=== PATIENT | male | born 1945 | race Caucasian/White ===

== ENCOUNTER → 2016-06-15 | Outpatient (REF) | payer MEDICARE, BC ==
[~2016-06-15] MED LIST: /CELE20CA OR; /TAMS4CA OR; ASTELIN NASAL SPRAY; AVELIDE PO; BACT800T OR; CIPR500T19 OR; CLAR5CHW OR; FLAG500T OR; LEVAQUIN PO; LOPR50TA OR; NASAL SPRAY; PHEN 25 PO; PHEN100T2 OR; PRIL40CA OR; TOPROL XL PO; ULTRTA PO; VICO5TAB OR; WELCHOL PO; [UNRECOGNIZED DRUG - OTHER] PO
[2016-06-15 11:58] LABS: ALBUMIN 3.7 GM/DL (3.2-5.2); ALBUMIN/GLOBULIN RATIO 1.37 (1.00-1.93); BILIRUBIN,TOTAL 1.3 MG/DL (0.2-1.0); CALCIUM LEVEL 8.4 MG/DL (8.8-10.2); CREATININE FOR GFR 1.36 MG/DL (0.70-1.30); GLOMERULAR FILTRATION RATE 54.7 (>42); POTASSIUM SERUM 3.6 MEQ/L (3.5-5.1); TOTAL PROTEIN 6.4 GM/DL (6.4-8.2)
== END ==
LOC: M SFHCLERA 07:44
PROVIDERS: ATTEND Physician Assistant
DX: I10 Essential (primary) hypertension (principal); E78.2 Mixed hyperlipidemia

== ENCOUNTER → 2016-06-28 | Outpatient (CLI) | payer MEDICARE, BC | LOC: M WUC 15:38 | PROVIDERS: ATTEND Urology | DX: C61 Malignant neoplasm of prostate (principal) ==

== ENCOUNTER → 2016-10-29 | Outpatient (CLI) | payer MEDICARE, BC | LOC: M WUC 16:02 | PROVIDERS: ATTEND Urology | DX: C61 Malignant neoplasm of prostate (principal); R97.20 Elevated prostate specific antigen [PSA] ==

== ENCOUNTER → 2017-01-04 | Outpatient (REF) | payer MEDICARE, BC ==
[2017-01-04 11:31] LABS: MEAN CORPUSCULAR HEMOGLOBIN 32.8 pg (27.0-33.0); MEAN CORPUSCULAR HGB CONC 35.3 g/dl (32.0-36.5); MEAN CORPUSCULAR VOLUME 92.9 fl (80.0-96.0); PLATELET COUNT, AUTOMATED 168 10^3/uL (150-450); RED CELL DISTRIBUTION WIDTH 13.2 % (11.5-14.5)
== END ==
LOC: M SFHCLERA 08:27
PROVIDERS: ATTEND Physician Assistant
DX: I10 Essential (primary) hypertension (principal); E78.2 Mixed hyperlipidemia; Z23 Encounter for immunization
CPT/HCPCS: 80061; 85027; 90662; G0008; G0463

== ENCOUNTER → 2017-03-08 | Outpatient (CLI) | payer MEDICARE, BC ==
[2017-03-08 19:46] LABS: PROSTATIC SPECIFIC AG MONITOR 5.24 NG/ML (< 4.0)
== END ==
LOC: M WUC 14:43
DX: R97.21 Rising PSA following treatment for malignant neoplasm of prostate (principal)
CPT/HCPCS: 84153

== ENCOUNTER → 2017-07-05 | Outpatient (REF) | payer MEDICARE, BC ==
[2017-07-05 11:24] LABS: HEMOGLOBIN 15.8 g/dl (13.5-17.5); MEAN CORPUSCULAR HEMOGLOBIN 32.2 pg (27.0-33.0); MEAN CORPUSCULAR HGB CONC 35.1 g/dl (32.0-36.5); MEAN CORPUSCULAR VOLUME 91.8 fl (80.0-96.0); PLATELET COUNT, AUTOMATED 156 10^3/uL (150-450); WHITE BLOOD COUNT 4.9 10^3/uL (4.0-10.0)
[2017-07-05 11:37] LABS: ALBUMIN/GLOBULIN RATIO 1.38 (1.00-1.93); ALKALINE PHOSPHATASE 87 U/L (45-117); ALT/SGPT 49 U/L (12-78); ANION GAP 6 MEQ/L (8-16); AST/SGOT 40 U/L (7-37); BILIRUBIN,TOTAL 1.4 MG/DL (0.2-1.0); BLOOD UREA NITROGEN 21 MG/DL (7-18); CALCIUM LEVEL 8.4 MG/DL (8.8-10.2); CARBON DIOXIDE LEVEL 28 MEQ/L (21-32); CHLORIDE LEVEL 110 MEQ/L (98-107); CHOLESTEROL LEVEL 151 MG/DL (<200); CHOLESTEROL RISK RATIO 5.206 (<5); CREATININE FOR GFR 1.59 MG/DL (0.70-1.30); GLOMERULAR FILTRATION RATE 45.5 (>42); GLUCOSE, FASTING 92 MG/DL (70-100); HDL CHOLESTEROL 29 MG/DL (>40); NON-HDL-C 122 MG/DL; POTASSIUM SERUM 4.1 MEQ/L (3.5-5.1); SODIUM LEVEL 144 MEQ/L (136-145); TOTAL PROTEIN 6.9 GM/DL (6.4-8.2); TRIGLYCERIDES LEVEL 240 MG/DL (<150)
== END ==
LOC: M SFHCLERA 08:19
DX: I10 Essential (primary) hypertension (principal); E78.2 Mixed hyperlipidemia
CPT/HCPCS: 80053

== ENCOUNTER → 2017-08-11 | Outpatient (CLI) | payer MEDICARE, BC ==
[2017-08-11 13:26] LABS: PROSTATIC SPECIFIC AG MONITOR 4.37 NG/ML (< 4.0)
== END ==
LOC: M WUC 09:39
DX: C61 Malignant neoplasm of prostate (principal)
CPT/HCPCS: 84153

== ENCOUNTER → 2017-10-18 | Outpatient (CLI) | payer MEDICARE, BC ==
[2017-10-18 14:05] LABS: BASO % 0.6 % (0.0-1.0); EOS # 0.1 10^3/uL (0.0-0.50); EOS % 2.1 % (0.0-3.0); HEMATOCRIT 45.6 % (42.0-52.0); HEMOGLOBIN 15.9 g/dl (13.5-17.5); IMMATURE GRANULOCYTE % 0.4 % (0-3.0); LYMPH # 1.8 10^3/uL (1.5-4.5); LYMPH % 34.7 % (24.0-44.0); MEAN CORPUSCULAR HEMOGLOBIN 32.7 pg (27.0-33.0); MEAN CORPUSCULAR HGB CONC 34.9 g/dl (32.0-36.5); MEAN CORPUSCULAR VOLUME 93.8 fl (80.0-96.0); MONO # 0.4 10^3/uL (0.0-0.8); MONO % 7.9 % (0.0-5.0); NEUTROPHILS # 2.8 10^3/uL (1.8-7.7); NEUTROPHILS % 54.3 % (36.0-66.0); PLATELET COUNT, AUTOMATED 161 10^3/uL (150-450); RED BLOOD COUNT 4.86 10^6/uL (4.30-6.10); RED CELL DISTRIBUTION WIDTH 12.9 % (11.5-14.5); WHITE BLOOD COUNT 5.2 10^3/uL (4.0-10.0)
[2017-10-18 14:21] LABS: APPEARANCE, URINE CLEAR (CLEAR); BACTERIA, URINE AUTO NEGATIVE (NEGATIVE); BILIRUBIN, URINE AUTO NEGATIVE (NEGATIVE); BLOOD, URINE BLOOD NEGATIVE (NEGATIVE); COLOR, URINE YELLOW (YELLOW); GLUCOSE, URINE (UA) AUTO NEGATIVE (NEGATIVE); KETONE, URINE AUTO NEGATIVE (NEGATIVE); LEUKOCYTE ESTERASE, URINE AUTO NEGATIVE (NEGATIVE); MUCUS, URINE SMALL (NEGATIVE); NITRITE, URINE AUTO NEGATIVE (NEGATIVE); PROTEIN, URINE AUTO NEGATIVE (NEGATIVE); RBC, URINE AUTO 0 /HPF (0-3); SPECIFIC GRAVITY URINE AUTO 1.017 (1.002-1.035); SQUAMOUS EPITHELIAL CELL UR AU 0 /HPF (0-6); UROBILINOGEN, URINE AUTO 0.2 mg/dL (0.0-2.0); WBC, URINE AUTO 0 /HPF (0-3)
[2017-10-18 14:22] LABS: ALBUMIN 4.2 GM/DL (3.2-5.2); ALKALINE PHOSPHATASE 87 U/L (45-117); ALT/SGPT 52 U/L (12-78); ANION GAP 6 MEQ/L (8-16); AST/SGOT 42 U/L (7-37); BILIRUBIN,TOTAL 1.6 MG/DL (0.2-1.0); BLOOD UREA NITROGEN 24 MG/DL (7-18); CALCIUM LEVEL 9.1 MG/DL (8.8-10.2); CARBON DIOXIDE LEVEL 29 MEQ/L (21-32); CHLORIDE LEVEL 108 MEQ/L (98-107); CHOLESTEROL LEVEL 173 MG/DL (<200); CHOLESTEROL RISK RATIO 5.088 (<5); CREATININE FOR GFR 1.55 MG/DL (0.70-1.30); GLOMERULAR FILTRATION RATE 46.9 (>42); GLUCOSE, FASTING 103 MG/DL (70-100); HDL CHOLESTEROL 34 MG/DL (>40); LDL CHOLESTEROL 93 MG/DL (<100); MAGNESIUM LEVEL 2.4 MG/DL (1.8-2.4); NON-HDL-C 139 MG/DL; POTASSIUM SERUM 4.2 MEQ/L (3.5-5.1); SODIUM LEVEL 143 MEQ/L (136-145); TOTAL PROTEIN 7.2 GM/DL (6.4-8.2); TRIGLYCERIDES LEVEL 230 MG/DL (<150)
[2017-10-18 14:25] LABS: ESTIMATED AVERAGE GLUCOSE 91 MG/DL (60-110); HEMOGLOBIN A1c 4.8 %
== END ==
LOC: M SMT 10:02
DX: N18.3 Chronic kidney disease, stage 3 (moderate) (principal); I12.9 Hypertensive chronic kidney disease with stage 1 through stage 4 chronic kidney disease, or unspecified chronic kidney disease; E78.5 Hyperlipidemia, unspecified; C61 Malignant neoplasm of prostate; M54.5 Low back pain; M25.552 Pain in left hip; Z79.899 Other long term (current) drug therapy
CPT/HCPCS: 83735

== ENCOUNTER → 2017-11-21 | Outpatient (CLI) | payer MEDICARE, BC | LOC: M RAD 16:11 | DX: M47.816 Spondylosis without myelopathy or radiculopathy, lumbar region (principal) | CPT/HCPCS: 72148 ==

== ENCOUNTER → 2018-02-13 | Outpatient (CLI) | payer MEDICARE, BC | LOC: M WUC 08:49 | PROVIDERS: ATTEND Urology | DX: C61 Malignant neoplasm of prostate (principal); R97.20 Elevated prostate specific antigen [PSA] ==

== ENCOUNTER → 2018-03-04 | Outpatient (CLI) | payer MEDICARE, BC ==
[2018-03-04 17:12] LABS: BASO % 0.5 % (0.0-1.0); EOS # 0.2 10^3/uL (0.0-0.50); EOS % 2.7 % (0.0-3.0); HEMATOCRIT 42.6 % (42.0-52.0); HEMOGLOBIN 14.8 g/dl (13.5-17.5); LYMPH # 1.7 10^3/uL (1.5-4.5); LYMPH % 31.4 % (24.0-44.0); MEAN CORPUSCULAR HEMOGLOBIN 32.2 pg (27.0-33.0); MEAN CORPUSCULAR HGB CONC 34.7 g/dl (32.0-36.5); MEAN CORPUSCULAR VOLUME 92.6 fl (80.0-96.0); MONO # 0.5 10^3/uL (0.0-0.8); MONO % 9.4 % (0.0-5.0); NEUTROPHILS # 3.1 10^3/uL (1.8-7.7); NEUTROPHILS % 55.8 % (36.0-66.0); PLATELET COUNT, AUTOMATED 174 10^3/uL (150-450); WHITE BLOOD COUNT 5.6 10^3/uL (4.0-10.0)
[2018-03-04 17:17] LABS: ALBUMIN 3.9 GM/DL (3.2-5.2); CALCIUM LEVEL 8.3 MG/DL (8.8-10.2); CHOLESTEROL RISK RATIO 4.242 (<5); CREATININE FOR GFR 1.72 MG/DL (0.70-1.30); GLOMERULAR FILTRATION RATE 41.5 (>42); MAGNESIUM LEVEL 2.2 MG/DL (1.8-2.4); MB/CK RELATIVE INDEX 1.47 (< OR =4); POTASSIUM SERUM 4.2 MEQ/L (3.5-5.1); TOTAL PROTEIN 6.4 GM/DL (6.4-8.2)
[2018-03-04 17:43] LABS: MALB URINE SIEMENS 15.7 MG/L
[2018-03-06 09:36] LABS: PTH INTACT 108.2 PG/ML (18.5-88.0); TOTAL 25(OH) VITAMIN D 53.1 NG/ML (30.0-100.0)
== END ==
LOC: M WUC 14:26
PROVIDERS: ATTEND Nurse Practitioner Family
DX: I12.9 Hypertensive chronic kidney disease with stage 1 through stage 4 chronic kidney disease, or unspecified chronic kidney disease (principal); E78.5 Hyperlipidemia, unspecified; E55.9 Vitamin D deficiency, unspecified; N18.3 Chronic kidney disease, stage 3 (moderate)

== ENCOUNTER → 2018-05-17 | Outpatient (REF) | payer MEDICARE, BC ==
[~2018-05-17] MED LIST changes: -/CELE20CA OR; -/TAMS4CA OR; +CELE1CAP4 OR; +FLOM0.4C39 OR
[2018-05-17 16:24] LABS: ALBUMIN 4.1 GM/DL (3.2-5.2); CALCIUM LEVEL 8.8 MG/DL (8.8-10.2); CREATININE FOR GFR 1.75 MG/DL (0.70-1.30); GLOMERULAR FILTRATION RATE 40.7 (>42); PHOSPHORUS LEVEL 3.1 MG/DL (2.5-4.9); POTASSIUM SERUM 3.5 MEQ/L (3.5-5.1)
== END ==
LOC: M SFHCPLAZ 14:04
PROVIDERS: ATTEND Nurse Practitioner Family
DX: I10 Essential (primary) hypertension (principal)
CPT/HCPCS: 36415; 80069; G0463

== ENCOUNTER → 2018-08-14 | Outpatient (CLI) | payer MEDICARE, BC ==
[2018-08-14 13:07] LABS: BASO % 0.4 % (0.0-1.0); EOS # 0.1 10^3/uL (0.0-0.50); EOS % 1.9 % (0.0-3.0); HEMATOCRIT 45.1 % (42.0-52.0); HEMOGLOBIN 15.6 g/dl (13.5-17.5); LYMPH # 1.6 10^3/uL (1.5-4.5); LYMPH % 33.3 % (24.0-44.0); MEAN CORPUSCULAR HEMOGLOBIN 31.5 pg (27.0-33.0); MEAN CORPUSCULAR HGB CONC 34.6 g/dl (32.0-36.5); MEAN CORPUSCULAR VOLUME 90.9 fl (80.0-96.0); MONO # 0.4 10^3/uL (0.0-0.8); MONO % 9.1 % (0.0-5.0); NEUTROPHILS # 2.7 10^3/uL (1.8-7.7); NEUTROPHILS % 55.1 % (36.0-66.0); PLATELET COUNT, AUTOMATED 145 10^3/uL (150-450); RED BLOOD COUNT 4.96 10^6/uL (4.30-6.10); WHITE BLOOD COUNT 4.8 10^3/uL (4.0-10.0)
[2018-08-14 13:35] LABS: ALBUMIN 3.6 GM/DL (3.2-5.2); BILIRUBIN,TOTAL 0.9 MG/DL (0.2-1.0); CALCIUM LEVEL 8.2 MG/DL (8.8-10.2); CHOLESTEROL RISK RATIO 4.081 (<5); CREATININE FOR GFR 1.37 MG/DL (0.70-1.30); GLOMERULAR FILTRATION RATE 53.9 (>42); MAGNESIUM LEVEL 2.1 MG/DL (1.8-2.4); PTH INTACT 64.2 PG/ML (18.5-88.0); THYROID STIMULATING HORMONE 3.44 uIU/ML (0.358-3.740); TOTAL 25(OH) VITAMIN D 49.4 NG/ML (30.0-100.0); TOTAL PROTEIN 6.3 GM/DL (6.4-8.2)
[2018-08-14 14:20] LABS: HEMOGLOBIN A1c 5.6 %
== END ==
LOC: M WUC 08:31
PROVIDERS: ATTEND Nurse Practitioner Family
DX: I10 Essential (primary) hypertension (principal); E78.5 Hyperlipidemia, unspecified; E55.9 Vitamin D deficiency, unspecified; Z79.899 Other long term (current) drug therapy

== ENCOUNTER → 2018-08-16 | Outpatient (REF) | payer MEDICARE, BC | LOC: M SFHCPLAZ 15:50 | PROVIDERS: ATTEND Nurse Practitioner Family | DX: M47.816 Spondylosis without myelopathy or radiculopathy, lumbar region (principal) ==

== ENCOUNTER → 2018-09-28 | Outpatient (CLI) | payer MEDICARE, BC | LOC: M WUC 14:15 | PROVIDERS: ATTEND Urology | DX: C61 Malignant neoplasm of prostate (principal) ==

== ENCOUNTER → 2018-12-19 | Outpatient (CLI) | payer MEDICARE, BC ==
[2018-12-19 14:14] LABS: BASO % 0.6 % (0.0-1.0); EOS # 0.1 10^3/uL (0.0-0.5); EOS % 2.9 % (0.0-3.0); HEMATOCRIT 45.9 % (42.0-52.0); HEMOGLOBIN 15.4 g/dl (13.5-17.5); LYMPH # 1.4 10^3/uL (1.5-5.0); LYMPH % 29.9 % (24.0-44.0); MEAN CORPUSCULAR HEMOGLOBIN 31.1 pg (27.0-33.0); MEAN CORPUSCULAR HGB CONC 33.6 g/dl (32.0-36.5); MEAN CORPUSCULAR VOLUME 92.7 fl (80.0-96.0); MONO # 0.4 10^3/uL (0.0-0.8); MONO % 8.6 % (0.0-5.0); NEUTROPHILS # 2.7 10^3/uL (1.5-8.5); NEUTROPHILS % 57.8 % (36.0-66.0); PLATELET COUNT, AUTOMATED 153 10^3/uL (150-450); RED BLOOD COUNT 4.95 10^6/uL (4.30-6.10); WHITE BLOOD COUNT 4.8 10^3/uL (4.0-10.0)
[2018-12-19 14:24] LABS: ALBUMIN 3.7 GM/DL (3.2-5.2); BILIRUBIN,TOTAL 1.5 MG/DL (0.2-1.0); CALCIUM LEVEL 8.7 MG/DL (8.8-10.2); CHOLESTEROL RISK RATIO 4.242 (<5); CREATININE FOR GFR 1.32 MG/DL (0.70-1.30); FREE T4 0.86 NG/DL (0.76-1.46); GLOMERULAR FILTRATION RATE 56.3 (>42); MAGNESIUM LEVEL 1.8 MG/DL (1.8-2.4); POTASSIUM SERUM 3.9 MEQ/L (3.5-5.1); THYROID STIMULATING HORMONE 2.41 uIU/ML (0.358-3.740); TOTAL PROTEIN 6.3 GM/DL (6.4-8.2)
[2018-12-19 14:27] LABS: PTH INTACT 63.4 PG/ML (18.5-88.0); TOTAL 25(OH) VITAMIN D 51.6 NG/ML (30.0-100.0)
[2018-12-19 14:36] LABS: HEMOGLOBIN A1c 5.4 %
== END ==
LOC: M WUC 12:03
PROVIDERS: ATTEND Nurse Practitioner Family
DX: M47.816 Spondylosis without myelopathy or radiculopathy, lumbar region (principal); I10 Essential (primary) hypertension; E55.9 Vitamin D deficiency, unspecified; E78.5 Hyperlipidemia, unspecified; Z79.899 Other long term (current) drug therapy

== ENCOUNTER → 2018-12-29 | Outpatient (CLI) | payer MEDICARE, BC ==
--- NOTE | 2018-12-29 15:45 | REP ---
RIGHT SHOULDER, THREE VIEWS: There is no evidence of an acute fracture, dislocation or intrinsic bone disease. IMPRESSION: No fracture or dislocation. Electronically Signed by Chuy Blanco MD 01/01/2019 09:36 A
== END ==
LOC: M WUC 15:14
PROVIDERS: ATTEND Nurse Practitioner Family
DX: M25.511 Pain in right shoulder (principal)

== ENCOUNTER → 2019-03-22 | Outpatient (CLI) | payer MEDICARE, BC | LOC: M PLALAB 13:46 | PROVIDERS: ATTEND Urology | DX: C61 Malignant neoplasm of prostate (principal); R97.21 Rising PSA following treatment for malignant neoplasm of prostate ==

== ENCOUNTER → 2019-08-07 | Outpatient (CLI) | payer MEDICARE, BC ==
[~2019-08-07] MED LIST changes: +ALL10TAB29 PO; +AMLO5TAB6 PO; +ATOR1TAB19 PO; +AVOD0.5C PO; +CALC1CAP31 PO; +CENT1TAB2 PO; +EQ A OU; +GABA-843 PO; +METO1TAB7 PO; +TELM1TAB33 PO
--- NOTE | 2019-08-07 15:01 | CR ---
DATE OF CONSULTATION: 08/07/2019 CHIEF COMPLAINT: Prostate cancer. HISTORY OF PRESENT ILLNESS: Mr. Escamilla is a 74-year-old gentleman, who has had PSA test for the last 10 years. His PSA fluctuated from range of 5 to 8. He did not have any significant urological symptoms. His PSA on February 17, 2012 reported to be 9.38 and March 08, 2017 was 5.24. On August 11, 2017 was 4.37. February 13, 2018 was 5.34. On September 28, 2018 was 5.97 and on 03/22/2009 was 7.83. The patient stated that he had negative prostatic biopsies in 2009,and prostatic biopsy on April 28, 2012 showed Michael 6 in2 out of multiple cores. He has no significant urinary symptoms. Most recent biopsy on July 17, 2019 showed Michael 7(3+4) in one core and Michael 6(3+3 )in another core, total of 7 cores. PAST MEDICAL HISTORY SIGNIFICANT FOR: 1. Hypertension. 2. High cholesterol. SURGICAL HISTORY: Surgical repair of right ankle fracture and left leg fracture in 2004. Ankle fracture was 1978. CURRENT MEDICATIONS: Amlodipine besylate 5 mg every day, omeprazole 40 mg once a day, tamsulosin 0.4 mg twice a day, Avodart 0.5 mg every day, voltaren 1% applied to the left knee, metoprolol succinate 50 mg every day, atorvastatin calcium 10 mg daily, Restore Plus drops to each eye daily, telmisartan 20 mg every day, gabapentin 300 mg once a day and cetirizine HCl 10 mg every bedtime. ALLERGIES: He has no known drug allergies. FAMILY HISTORY: He said his father had prostate cancer diagnosed in the late 60s and he of some other cause. There is no other family history of cancer. SOCIAL HISTORY: He lives with , who has been 56 years and has three children. He is a nonsmoker. He denies any alcohol and drug abuse. He is self employed. 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 REVIEW OF SYSTEMS: GENERAL and CONSTITUTIONAL: He denies fever, headache, chills, weight loss. HEENT: Denies visual disturbance or hearing problems. RESPIRATORY PULMONARY: Denies cough, shortness of breath. CARDIOVASCULAR: Denies palpitations or chest pain. GASTROINTESTINAL: Denies nausea, vomiting, abdominal cramps. GENITOURINARY: He denies urinary frequency, incontinence, hematuria, dysuria. MUSCULOSKELETAL: Denies bone pain, joint swelling. SKIN: Denies rashes. NEUROLOGICAL: Denies headache, dizziness. PSYCHIATRIC and EMOTIONAL Denies depression or anxiety. ECOG performance status is 0. PHYSICAL EXAMINATION: GENERAL EXAMINATION: Revealed well-developed and nourished male and not in apparent distress. The patient was alert and oriented. VITAL SIGNS: Temperature 97.4, pulse 68, res1 16, blood pressure 139/82, oxygen saturation is 97. HEENT: Normocephalic, atraumatic. NECK: Supple. No cervical lymphadenopathy. CARDIOVASCULAR: Regular rhythm and rate. RESPIRATORY: Clear to auscultation. ABDOMEN: Soft, nontender, nondistended without any palpable mass or organomegaly. GENITOURINARY: Not examined. LYMPHATICS: No groin lymphadenopathy. SKIN: There are on skin lesions. EXTREMITIES: No swelling, cyanosis or clubbing. NEUROLOGICAL: Strength and sensation grossly normal. PSYCHIATRIC: Mood and affect appropriate. PATHOLOGICAL FINDINGS: Mentioned in the history of present illness. LABORATORY FINDINGS: Mentioned in history of present illness. ICD10 code C 61. Staging T1c, N0,M0.,Intermediate risk group ASSESSMENT AND RECOMMENDATIONS: Mr. Escamilla is a 75-year-old gentleman presented with rising PSA in the last 10 years. PSA on 2019 was 7.83. The patient had prostatic biopsy on July 16, 2009 and the pathology showed Michael score of 7 3+4 and 6 3+3. He has no urinary symptoms. RECOMMENDATION: The patient was accompanied by his and we have discussed the nature of the disease and all the treatment options. He is in intermediate risk group of prostate cancer. We reviewed NCCN guidlines and explained all the options, which include surgery, observations. They decided to have external radiation therapy. I discussed more details of radiation therapy and explained procedures and potential side effect of the radiation therapy. I am planning to deliver dose of 7900 cGy in 9 weeks. I have given them a chance to ask questions and concerns and they were answered to their satisfaction. Patient will have fiducial markers placed before planning CT MTDD
== END ==
LOC: M ONCR 09:52
PROVIDERS: ATTEND Radiology Radiation Oncology
DX: C61 Malignant neoplasm of prostate (principal); I10 Essential (primary) hypertension; E78.5 Hyperlipidemia, unspecified; Z80.42 Family history of malignant neoplasm of prostate

== ENCOUNTER → 2019-10-08 | Outpatient (RCR) | payer MEDICARE, BC ==
[~2019-10-08] MED LIST changes: -ALL10TAB29 PO; +AMLO1TAB24 PO; -AMLO5TAB6 PO; +CETI-24 PO
== END ==
LOC: M ONCR 09-26 09:10
PROVIDERS: ATTEND General Practice
DX: C61 Malignant neoplasm of prostate (principal)

== ENCOUNTER 2019-10-29 08:46 | Outpatient (RCR) | payer MEDICARE, BC | END 2019-11-07 | LOC: M ONCR 08:46 | PROVIDERS: ATTEND General Practice | DX: C61 Malignant neoplasm of prostate (principal) ==

== ENCOUNTER → 2020-01-29 | Outpatient (CLI) | payer MEDICARE, BC ==
[2020-01-29 12:39] LABS: PROSTATIC SPECIFIC AG MONITOR 1.02 NG/ML (< 4.00)
== END ==
LOC: M WUC 09:15
PROVIDERS: ATTEND Radiology Radiation Oncology
DX: C61 Malignant neoplasm of prostate (principal)

== ENCOUNTER → 2020-02-05 | Outpatient (CLI) | payer MEDICARE, BC ==
--- NOTE | 2020-02-05 10:26 | RADONC ---
Radiation Oncology Hx/FUP Radiation Oncology Hx/FUP Date of Service: Feb 05, 2020 Pt Identifier Kane Escamilla is a 74 year old male seen for a followup visit today at the department of radiation oncology for a history of favorable intermediate risk prostate cancer T1c Michael 3+4=7 PSA 7.83. He completed EBRT 70 Gy in 28 fractions on 10/29/19. Diagnosis/Treatment History Oncologic History As above Pathology 07/17/19 TURS biopsy Left apex Michael 3+4=7 in 1 core Right apex [place] 3+3=6 in 1 core PSA (on Avodart long standing) 01/29/20 1.02 (1st post-tx) 03/22/19 7.83 (immediate pre-tx) Testosterone 01/29/20 418 Interval History Kane feels well stable 2x nocturia. Remains on flomax 0.8 mg QHS. Only urinary bother which is new since RT is intermittent end of stream dysuria, which is mild and not overly painful. He takes azo tabs PRN for this. No problems with bowel movements. Has longstanding ED, unchanged. Appetite and energy good, weight stable. Current Therapy Surveillance Stage Favorable intermediate risk prostate cancer T1c Michael 3+4=7 (single core) PSA 7.83 Social History: Non-smoker Non-drinker Allergies / Meds Allergies: Coded Allergies: MS - Propoxyphene (Unverified Adverse Reaction, Unknown, WEIRD DREAMS, 05/10/12) No Known Allergies (Verified , 06/01/04) Home Meds Reported Medications Cetirizine HCl (Cetirizine HCl) 10 Mg Tablet, 10 MG PO QHS, TAB 08/07/19 Gabapentin (Gabapentin) 300 Mg Capsule, 300 MG PO DAILY for 30 Days, #30 CAP 08/07/19 Telmisartan (Telmisartan) 20 Mg Tablet, 20 MG PO DAILY for 30 Days, #30 TAB 08/07/19 Glycerin/Propylene Glycol (Eq Artificial Tears Drops) 15 Ml Drops, 1 JOSE OU DAILY, CONTAINER 08/07/19 Atorvastatin Calcium (Atorvastatin Calcium) 10 Mg Tablet, 10 MG PO DAILY, TAB 08/07/19 Calcitriol (Calcitriol) 0.25 Mcg Capsule, 0.25 MCG PO 3XW for 30 Days, CAP 08/07/19 Metoprolol Succinate (Metoprolol Succinate) 50 Mg Tab.er.24h, 50 MG PO DAILY, TAB 08/07/19 Dutasteride (Avodart) 0.5 Mg Capsule, 1 CAP PO DAILY for 30 Days, #30 CAP 08/07/19 Multivit-Mins/Iron/Folic/Lycop (Centrum Men's Tablet) 1 Each Tablet, 1 TAB PO DAILY for 30 Days, #30 TAB 08/07/19 Amlodipine Besylate (Amlodipine Besylate) 5 Mg Tablet, 5 MG PO DAILY, TAB 08/07/19 Loratadine (Children's Claritin) 5 Mg Chw, 10 MG OR DAILY 10/03/11 Ciprofloxacin/Ciprofloxa HCl (Ciprofloxacin ER 500 mg Tablet) 500 Mg Tab, 500 MG OR BID 10/03/11 Metronidazole (Flagyl) 500 Mg Tab, 500 MG OR TID 10/03/11 Metoprolol Tartrate (Lopressor) 50 Mg Tab, 50 MG OR Q8H 10/03/11 Colesevelam Hydrochloride (Welchol) Tab, 625 MG PO DAILY 10/01/11 Promethazine Hcl (Phenergan) 25 Mg Tab, 25 MG PO TIDP 10/01/11 Omeprazole (Prilosec) 40 Mg Cap, 40 MG OR BID 10/01/11 [Astelin Nasal [place]] No Conflict Check, 2 SPRAYS NA 10/01/11 Tramadol/Apap (Ultracet) 1 Tab Tab, 1 TAB PO BID 10/01/11 Celecoxib (Celebrex) 200 Mg Cap, 200 MG OR DAILY 10/01/11 [Hyoscamine] No Conflict Check, 1 TAB PO PRN 10/01/11 [Avelide] No Conflict Check, 1 TAB PO DAILY 10/01/11 Phenazopyridine Hcl (Pyridium) 100 Mg Tab, 100 MG OR PRN 10/01/11 Tamsulosin HCl (Flomax) 0.4 Mg Cap, 0.4 MG OR QHS 10/01/11 Acetaminophen/Hydrocodone (Vicodin) 1 Tab Tab, 2 TAB OR PRN 10/01/11 Review of Systems Review of Systems Constitutional: Denies: Fatigue, Weight Loss Eyes: Denies: Pain HEENT: Denies: Head Aches Skin: Denies: Rash Pulmonary: Denies: Dyspnea, Cough Cardiovascular: Denies: Chest Pain, Palpitations Gastrointestinal: Denies: Nausea, Vomiting, Abdominal Pain, Constipation Genitourinary: Reports: Dysuria; Denies: Frequency, Incontinence, Hematuria, Retention Hematologic: Denies: Bruising Musculoskeletal: Denies: Neck pain, Back pain Neurological: Denies: Weakness, Numbness Psych: Reports: Mood Normal Physical Examination Vital Signs Wt 195 lb T 97.4 P 69 RR 16 BP 173/76 O2 98% General Exam: Positive: Alert, Cooperative, No Acute Distress Eye Exam: Positive: PERRLA, EOMI ENT EXAM: Positive: Atraumatic Neck Exam: Positive: Supple Chest Exam: Positive: Clear to auscultation, Normal air movement Heart Exam: Positive: Rate Normal, Regular Rhythm Abdomen Exam: Positive: Soft; Negative: Tenderness Extremity Exam: Negative: Edema Skin Exam: Positive: Nl turgor and temperature Neuro Exam: Positive: Normal Gait, Normal Speech, Cranial Nerves 3-12 NL Psych Exam: Positive: Mental status NL Other Physical Findings deferred Diagnostic and Laboratory Diagnostic Review Radiologic images, relevant labs and pathology reports were personally reviewed and discussed with Mr. Escamilla. Assessment and Plan Impression Assessment Mr. Escamilla is a 74 year old male with a history of favorable intermediate risk prostate cancer T1c [place] 3+4=7 PSA 7.83. He completed EBRT 70 Gy in 28 f ractions on 10/29/19. He is doing well overall. PSA response is excellent. He continue on avodart (unclear if this is necessary at this time given his lack of LUTS), I asked him to take up this issue with urology who prescribes the med. He continues on alex max. With regard to his end of stream dysuria, this is common post-RT and can be persistent for many months. Azo is effective for this as needed and I asked him to try 100% cranberry juice BID. He knows can always call me if these things aren't effective. I will follow PSA, next in 6 months Performance Status ECOG 0 Plan 6 months with PSA Cranberry juice/azo for dysuria To speak with urologist about avodart utility in this setting Mr. Escamilla was encouraged to call with questions or concerns in the interim period. STEVO CHACON MD Feb 05, 2020 10:26
== END ==
LOC: M ONCR 09:46
PROVIDERS: ATTEND General Practice
DX: C61 Malignant neoplasm of prostate (principal)

== ENCOUNTER → 2020-05-21 | Outpatient (CLI) | payer MEDICARE, BC ==
[~2020-05-21] MED LIST changes: +GABA-282 PO; -GABA-843 PO
[2020-05-21 10:11] LABS: BASO % 0.5 % (0.0-1.0); EOS # 0.1 10^3/uL (0.0-0.5); EOS % 2.6 % (0.0-3.0); HEMATOCRIT 45.1 % (42.0-52.0); HEMOGLOBIN 15.3 g/dl (13.5-17.5); LYMPH # 1.1 10^3/uL (1.5-5.0); LYMPH % 28.1 % (24.0-44.0); MEAN CORPUSCULAR HEMOGLOBIN 31.7 pg (27.0-33.0); MEAN CORPUSCULAR HGB CONC 33.9 g/dl (32.0-36.5); MEAN CORPUSCULAR VOLUME 93.6 fl (80.0-96.0); MONO # 0.4 10^3/uL (0.0-0.8); NEUTROPHILS # 2.3 10^3/uL (1.5-8.5); NEUTROPHILS % 57.5 % (36.0-66.0); PLATELET COUNT, AUTOMATED 132 10^3/uL (150-450); RED BLOOD COUNT 4.82 10^6/uL (4.30-6.10); WHITE BLOOD COUNT 3.9 10^3/uL (4.0-10.0)
[2020-05-21 10:35] LABS: ALBUMIN 3.8 GM/DL (3.2-5.2); BILIRUBIN,TOTAL 1.3 MG/DL (0.2-1.0); CALCIUM LEVEL 9.2 MG/DL (8.8-10.2); CHOLESTEROL RISK RATIO 4.162 (<5); CREATININE FOR GFR 1.35 MG/DL (0.70-1.30); GLOMERULAR FILTRATION RATE 54.6 (>42); POTASSIUM SERUM 4.3 MEQ/L (3.5-5.1); TOTAL PROTEIN 6.5 GM/DL (6.4-8.2)
[2020-05-21 10:42] LABS: PTH INTACT 63.6 PG/ML (18.5-88.0); TOTAL 25(OH) VITAMIN D 39.5 NG/ML (30.0-100.0)
== END ==
LOC: M WUC 08:15
PROVIDERS: ATTEND Nurse Practitioner Family
DX: E78.5 Hyperlipidemia, unspecified (principal); M15.9 Polyosteoarthritis, unspecified; I10 Essential (primary) hypertension; E55.9 Vitamin D deficiency, unspecified; Z79.899 Other long term (current) drug therapy

== ENCOUNTER → 2020-05-23 | Outpatient (REF) | payer MEDICARE, BC ==
[2020-05-25 07:06] LABS: PSA TOTAL 0.5 ng/mL (0.0-4.0)
== END ==
LOC: M SFHCPLAZ 11:55
PROVIDERS: ATTEND Nurse Practitioner Family
DX: C61 Malignant neoplasm of prostate (principal)

== ENCOUNTER → 2020-07-26 | Outpatient (CLI) | payer MEDICARE, BC ==
[~2020-07-26] MED LIST changes: +OMEP-221; +TAMS1CAP17; +TRAM37.53
== END ==
LOC: M LABSMTC 08:41
PROVIDERS: ATTEND Anesthesiology
DX: Z01.812 Encounter for preprocedural laboratory examination (principal); Z20.822 Contact with and (suspected) exposure to COVID-19

== ENCOUNTER 2020-07-31 12:03 | Day surgery (SDC) | payer MEDICARE, BC ==
[~2020-07-31] VITALS: Ht 170.2 cm; Wt 82.6 kg
[~2020-07-31 12:03] MED LIST changes: +LIDOCAINE 2% 100MG/5ML SDV (FOR ANES.) As Ordered ONE; +NS 1,000 ML IV ONE; +propofoL 200 MG/20 ML VIAL As Ordered ONE
[2020-07-31 14:00] VITALS: BP 119/70
--- NOTE | 2020-07-31 14:06 | ROOR ---
Patient Name: Kane Escamilla Procedure Date: 07/31/2020 1:33 PM Date of : 1945 Age: 75 Room: [facility] Gender: Male Note Status: Finalized Procedure: Colonoscopy Indications: Rectal bleeding Providers: Servando Ceja Jr, MD Referring MD: Kelly Tuttle Requesting Provider: Medicines: Propofol per Anesthesia Complications: No immediate complications. Procedure: Pre-Anesthesia Assessment: - Prior to the procedure, a History and Physical was performed, and patient medications and allergies were reviewed. The patient is competent. The risks and benefits of the procedure and the sedation options and risks were discussed with the patient. All questions were answered and informed consent was obtained. Patient identification and proposed procedure were verified by the physician and the nurse in the pre-procedure area and in the procedure room. Mental Status Examination: alert and oriented. Airway Examination: normal oropharyngeal airway and neck mobility. Respiratory Examination: clear to auscultation. CV Examination: normal. ASA Grade Assessment: II - A patient with mild systemic disease. After reviewing the risks and benefits, the patient was deemed in satisfactory condition to undergo the procedure. The anesthesia plan was to use moderate sedation / analgesia (conscious sedation). Immediately prior to administration of medications, the patient was re-assessed for adequacy to receive sedatives. The heart rate, respiratory rate, oxygen saturations, blood pressure, adequacy of pulmonary ventilation, and response to care were monitored throughout the procedure. The physical status of the patient was re-assessed after the procedure. The Colonoscope was introduced through the anus and advanced to the cecum, identified by appendiceal orifice and ileocecal valve. The patient tolerated the procedure well. The quality of the bowel preparation was adequate. The colonoscopy was performed without difficulty. Findings: The appendiceal orifice and ileocecal valve appeared normal. Four polyps were found in the descending colon, ascending colon and cecum. The polyps were small in size. These polyps were removed with a hot snare. Resection and retrieval were complete. A medium polyp was found in the sigmoid colon. The polyp was pedunculated. The polyp was removed with a hot snare. Resection and retrieval were complete. The mucosa vascular pattern in the rectum was locally increased. Coagulation for hemostasis using hot biopsy forceps was successful. Impression: - The appendiceal orifice and ileocecal valve are normal. - Four small polyps in the descending colon, in the ascending colon and in the cecum, removed with a hot snare. Resected and retrieved. - One medium polyp in the sigmoid colon, removed with a hot snare. Resected and retrieved. - Increased mucosa vascular pattern in the rectum. SEVERE RADIATION PROCTITIS Treated with hot biopsy forceps. Recommendation: - Discharge patient to home (ambulatory). - Refer to a line haul driver at appointment to be scheduled. - Ablate with laser treatment(s) at appointment to be scheduled. Procedure Code(s): --- Professional --- 30721, 59, Colonoscopy, flexible; with control of bleeding, any method 73467, Colonoscopy, flexible; with removal of tumor(s), polyp(s), or other lesion(s) by snare technique Diagnosis Code(s): --- Professional --- K62.5, Hemorrhage of anus and rectum K63.5, Polyp of colon CPT copyright 2019 [employer]. All rights reserved. The codes documented in this report are preliminary and upon fitness specialist review may be revised to meet current compliance requirements. Servando Ceja MD Servando Ceja Jr, MD 07/31/2020 2:06:16 PM Electronically signed by Servando Ceja Jr, MD Number of Addenda: 0 Note Initiated On: 07/31/2020 1:33 PM Estimated Blood Loss: Estimated blood loss: none.
== END 2020-07-31 14:07 | disposition home or self-care (01) ==
LOC: M OPP 12:03
PROVIDERS: ATTEND Surgery
DX: K63.5 Polyp of colon (principal); K57.30 Diverticulosis of large intestine without perforation or abscess without bleeding; K62.7 Radiation proctitis; K62.5 Hemorrhage of anus and rectum; Z79.899 Other long term (current) drug therapy; Z88.5 Allergy status to narcotic agent; Z92.3 Personal history of irradiation

== ENCOUNTER → 2020-08-04 | Outpatient (CLI) | payer MEDICARE, BC ==
[~2020-08-04] MED LIST changes: -LIDOCAINE 2% 100MG/5ML SDV (FOR ANES.) As Ordered ONE; -NS 1,000 ML IV ONE; -propofoL 200 MG/20 ML VIAL As Ordered ONE
== END ==
LOC: M WUC 09:29
PROVIDERS: ATTEND General Practice
DX: C61 Malignant neoplasm of prostate (principal)

== ENCOUNTER → 2020-08-06 | Outpatient (CLI) | payer MEDICARE, BC ==
--- NOTE | 2020-08-06 11:52 | RADONC ---
Radiation Oncology Hx/FUP Radiation Oncology Hx/FUP Date of Service: Aug 06, 2020 Pt Identifier Kane Escamilla is a 75 year old male seen for a followup visit today at the department of radiation oncology for a history of favorable intermediate risk prostate cancer T1c Michael 3+4=7 PSA 7.83. He completed EBRT 70 Gy in 28 fractions on 10/29/19. Diagnosis/Treatment History Oncologic History As above Pathology 07/17/19 TURS biopsy Left apex Michael 3+4=7 in 1 core Right apex [place] 3+3=6 in 1 core PSA (on Avodart long standing) 08/04/20 0.64 01/29/20 1.02 (1st post-tx) 03/22/19 7.83 (immediate pre-tx) Testosterone 01/29/20 418 Recent data: 07/31/20 Colonoscopy with RT proctitis. TA and HPs snared Interval History Kane reports he is feeling well, however over the late Winter he began having some painless BRBPR, initially just on the paper when wiping, but steadily increasing over months to drops in the bowl. No diarrhea or increased bowel frequency with this. He was referred to Dr. Ceja who did a colonoscopy on 07/31/20 which showed RT proctitis. He is being referred for laser treatment. His urinary symptoms post-RT have abated and he states are better than before treatment, nocturia is down to 1x, no weak stream or incomplete emptying. The late stream dysuria he had at the last appointment has resolved completely. Appetite is good and energy levels stable. He established urologic care @ [facility], and is seeing a doctor there in 6 months. Current Therapy Surveillance Stage Favorable intermediate risk prostate cancer T1c [place] 3+4=7 (single core) PSA 7.83 Social History: Non-smoker Non-drinker Allergies / Meds Allergies: Coded Allergies: propoxyphene (Verified Adverse Reaction, Mild, weird dreams, 07/22/20) Home Meds Reported Medications Omeprazole (Omeprazole) 40 Mg Capsule. 07/22/20 Tamsulosin Hcl (Tamsulosin HCl) 0.4 Mg Capsule 07/22/20 Tramadol HCl/Acetaminophen (Tramadol-Acetaminophn 37.5-325) 1 Each Tablet 07/22/20 Cetirizine HCl (Cetirizine HCl) 10 Mg Tablet, 10 MG PO QHS, TAB 08/07/19 Gabapentin (Gabapentin) 300 Mg Capsule, 300 MG PO DAILY for 30 Days, #30 CAP 08/07/19 Telmisartan (Telmisartan) 20 Mg Tablet, 20 MG PO DAILY for 30 Days, #30 TAB 08/07/19 Glycerin/Propylene Glycol (Eq Artificial Tears Drops) 15 Ml Drops, 1 JOSE OU DAILY, CONTAINER 08/07/19 Atorvastatin Calcium (Atorvastatin Calcium) 10 Mg Tablet, 10 MG PO DAILY, TAB 08/07/19 Calcitriol (Calcitriol) 0.25 Mcg Capsule, 0.25 MCG PO 3XW for 30 Days, CAP 08/07/19 Metoprolol Succinate (Metoprolol Succinate) 50 Mg Tab.er.24h, 50 MG PO DAILY, TAB 08/07/19 Multivit-Mins/Iron/Folic/Lycop (Centrum Men's Tablet) 1 Each Tablet, 1 TAB PO DAILY for 30 Days, #30 TAB 08/07/19 Amlodipine Besylate (Amlodipine Besylate) 5 Mg Tablet, 5 MG PO DAILY, TAB 08/07/19 Review of Systems Review of Systems Constitutional: Denies: Chills, Fever, Fatigue, Weight Loss Eyes: Denies: Pain HEENT: Denies: Head Aches Skin: Denies: Rash Pulmonary: Denies: Dyspnea, Cough Cardiovascular: Denies: Chest Pain, Palpitations Gastrointestinal: Reports: Hematochezia; Denies: Abdominal Pain, Diarrhea, Constipation Genitourinary: Denies: Dysuria, Frequency, Incontinence, Hematuria Hematologic: Denies: Bruising Musculoskeletal: Denies: Neck pain, Back pain Neurological: Denies: Weakness, Numbness Psych: Reports: Mood Normal Physical Examination Vital Signs Wt 184 lbs T 98 P 64 RR 18 BP 136/78 O2 99% Pain 0 Fatigue 0 General Exam: Positive: Alert, Cooperative, No Acute Distress Eye Exam: Positive: PERRLA, EOMI ENT EXAM: Positive: Atraumatic Neck Exam: Positive: Supple Chest Exam: Positive: Clear to auscultation, Normal air movement Heart Exam: Positive: Rate Normal, Regular Rhythm Abdomen Exam: Positive: Soft Extremity Exam: Negative: Edema Skin Exam: Positive: Nl turgor and temperature Neuro Exam: Positive: Normal Gait, Normal Speech, Cranial Nerves 3-12 NL Psych Exam: Positive: Mental status NL Other Physical Findings deferred PSA declining Diagnostic and Laboratory Diagnostic Review Radiologic images, relevant labs and pathology reports were personally reviewed and discussed with Mr. Escamilla. Assessment and Plan Impression Assessment Mr. Escamilla is a 75 year old male with a history of favorable intermediate risk prostate cancer T1c [place] 3+4=7 PSA 7.83. He completed EBRT 70 Gy in 28 fractions on 10/29/19. His PSA response is excellent. 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 He is being referred for laser coagulation of this, which is effective. I reviewed his dosimetry in detail and all RTOG 0415 rectal constraints were met. I explained that there is increasing recognition of individual differences in the tolerance of organs to radiation which have genetic and environmental underpinnings which are as of now only superficially understood. I apologized that he has experiences this late complication. He was appreciative of this and thankful to know the etiology. We agreed that he would see me again in 6 months with PSA, and if his proctitis and PSA are in check, then we can do annual follow up in effort to split follow up with his new urologist at [facility], such that he would only have PSA checked biannually. Performance Status ECOG 0 Plan Follow up in 6 months with PSA Mr. Escamilla was encouraged to call with questions or concerns in the interim period. Billing Statement Total time of [24] minutes was spent preparing for the visit [1], obtaining HPI [5], examining the patient [1], reviewing diagnostic tests [2], discussing management options [6], coordinating care [1], and writing this note [8]. STEVO CHACON MD Aug 06, 2020 11:51
== END ==
LOC: M ONCR 10:29
PROVIDERS: ATTEND General Practice
DX: C61 Malignant neoplasm of prostate (principal)

== ENCOUNTER → 2020-10-29 | Outpatient (CLI) | payer MEDICARE, BC ==
[~2020-10-29] MED LIST changes: -TAMS1CAP17; +TAMS1CAP17 PO; -TRAM37.53; +TRAM37.53 PO
== END ==
LOC: M LABSMTC 11:34
PROVIDERS: ATTEND Anesthesiology
DX: Z01.818 Encounter for other preprocedural examination (principal); Z11.52 Encounter for screening for COVID-19

== ENCOUNTER 2020-11-03 08:38 | Day surgery (SDC) | payer MEDICARE, BC ==
[~2020-11-03] VITALS: Ht 170.2 cm; Wt 87.1 kg
[~2020-11-03 08:38] MED LIST changes: +NS 1,000 ML IV ONE
[2020-11-03] MEDS ORDERED: propofoL 200 MG/20 ML VIAL As Ordered ONE ×2 (09:28→09:44)
--- NOTE | 2020-11-03 09:57 | ROOR ---
Patient Name: Kane Escamilla Procedure Date: 11/03/2020 9:26 AM Date of : 1945 Age: 75 Room: [facility] Gender: Male Note Status: Finalized Procedure: Colonoscopy Indications: This patient was referred for a therapeutic procedure, For therapy of radiation proctitis Providers: Kel Ritchie MD Referring MD: Kelly Tuttle Requesting Provider: Medicines: Monitored Anesthesia Care Complications: No immediate complications. Procedure: Pre-Anesthesia Assessment: - The heart rate, respiratory rate, oxygen saturations, blood pressure, adequacy of pulmonary ventilation, and response to care were monitored throughout the procedure. The Endoscope was introduced through the anus and advanced to the sigmoid colon for evaluation. This was the intended extent. The colonoscopy was performed without difficulty. The patient tolerated the procedure well. The quality of the bowel preparation was good. Findings: The perianal and digital rectal examinations were normal. Scattered moderate mucosal changes characterized by altered vascularity were found in the mid rectum and in the distal rectum. Coagulation for hemostasis using argon beam at 0.8 liters/minute and 30 joiner was successful. Impression: - Radiation proctitis: -Moderate, scattered, recently bleeding neovascularisations/vascular ectasia with adherent mucousy blood in mid and distal rectum. Treated with argon beam coagulation. - No specimens collected. Recommendation: - Observe for improvement/resolution of rectal bleeding over next few days. If necessary, we can repeat this procedure in about 1 month. - Return to my office PRN. Procedure Code(s): --- Professional --- 99061, 52, Colonoscopy, flexible; with control of bleeding, any method Diagnosis Code(s): --- Professional --- K62.7, Radiation proctitis CPT copyright 2019 [employer]. All rights reserved. The codes documented in this report are preliminary and upon bird trapper review may be revised to meet current compliance requirements. Kel Ritchie MD Kel Ritchie MD 11/03/2020 9:57:15 AM Electronically signed by Kel Ritchie MD Number of Addenda: 0 Note Initiated On: 11/03/2020 9:26 AM Estimated Blood Loss: Estimated blood loss: none.
[2020-11-03 10:15] VITALS: BP 136/70
== END 2020-11-03 10:21 | disposition home or self-care (01) ==
LOC: M OPP 08:38
PROVIDERS: ATTEND Internal Medicine Gastroenterology
DX: K62.7 Radiation proctitis (principal); Z79.891 Long term (current) use of opiate analgesic; Z79.899 Other long term (current) drug therapy; Z88.8 Allergy status to other drugs, medicaments and biological substances

== ENCOUNTER → 2020-11-19 | Outpatient (CLI) | payer MEDICARE, BC ==
[~2020-11-19] MED LIST changes: -NS 1,000 ML IV ONE
[2020-11-19 14:05] LABS: BASO % 0.6 % (0.0-1.0); EOS # 0.1 10^3/uL (0.0-0.5); EOS % 1.4 % (0.0-3.0); HEMATOCRIT 45.2 % (42.0-52.0); HEMOGLOBIN 15.3 g/dl (13.5-17.5); LYMPH # 0.8 10^3/uL (1.5-5.0); MEAN CORPUSCULAR HEMOGLOBIN 31.5 pg (27.0-33.0); MEAN CORPUSCULAR HGB CONC 33.8 g/dl (32.0-36.5); MEAN CORPUSCULAR VOLUME 93.2 fl (80.0-96.0); MONO # 0.4 10^3/uL (0.0-0.8); MONO % 6.6 % (2.0-8.0); NEUTROPHILS % 77.9 % (36.0-66.0); PLATELET COUNT, AUTOMATED 171 10^3/uL (150-450); RED BLOOD COUNT 4.85 10^6/uL (4.30-6.10); WHITE BLOOD COUNT 6.5 10^3/uL (4.0-10.0)
[2020-11-19 14:20] LABS: HEMOGLOBIN A1c 5.3 %
[2020-11-19 14:29] LABS: ALBUMIN 3.7 GM/DL (3.2-5.2); BILIRUBIN,TOTAL 1.2 MG/DL (0.2-1.0); CALCIUM LEVEL 8.7 MG/DL (8.8-10.2); CHOLESTEROL RISK RATIO 4.314 (<5); CREATININE FOR GFR 1.34 MG/DL (0.70-1.30); POTASSIUM SERUM 3.9 MEQ/L (3.5-5.1); TOTAL PROTEIN 6.5 GM/DL (6.4-8.2)
== END ==
LOC: M PLALAB 09:01
PROVIDERS: ATTEND Nurse Practitioner Family
DX: I10 Essential (primary) hypertension (principal); E78.5 Hyperlipidemia, unspecified; D69.6 Thrombocytopenia, unspecified; Z79.899 Other long term (current) drug therapy

== ENCOUNTER → 2021-01-14 | Outpatient (REF) | payer MEDICARE, BC | LOC: M LAB REF 12:54 | PROVIDERS: ATTEND Internal Medicine Nephrology | DX: E83.42 Hypomagnesemia (principal) ==

== ENCOUNTER → 2021-01-29 | Outpatient (CLI) | payer MEDICARE, BC | LOC: M WUC 08:23 | PROVIDERS: ATTEND General Practice | DX: C61 Malignant neoplasm of prostate (principal) ==

== ENCOUNTER → 2021-01-29 | Outpatient (CLI) | payer MEDICARE, BC | LOC: M WUC 08:20 | PROVIDERS: ATTEND Urology | DX: N52.9 Male erectile dysfunction, unspecified (principal) ==

== ENCOUNTER → 2021-02-04 | Outpatient (CLI) | payer MEDICARE, BC ==
--- NOTE | 2021-02-04 12:25 | RADONC ---
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 He completed EBRT 70 Gy in 28 fractions on 10/29/19. He developed radiation proctitis over the winter of 2020 and underwent [address] Dr[address] Ritchie on 11/03/20 which resulted in resolution of his bleeding. Diagnosis/Treatment History Oncologic History As above Pathology 07/17/19 TURS biopsy Left apex Michael 3+4=7 in 1 core Right apex [place] 3+3=6 in 1 core PSA (on Avodart long standing) 01/29/21 1.16 (s/p D/C avodart) 08/04/20 0.64 01/29/20 1.02 (1st post-tx) 03/22/19 7.83 (immediate pre-tx) Testosterone 01/29/20 418 Recent data: 07/31/20 Colonoscopy with RT proctitis. TA and HPs snared 11/03/20 APC for moderate RT proctitis ([facility]) Interval History Valdemar reports he feels well. Has some mild dysuria which has been longstanding associated with his Peyronie's disease. Has tried azo tabs without any improvement. For now he is content with his urinary function. He has not had any significant rectal bleeding since APC was completed. Was told he only needed one treatment, but that it could be repeated later on if needed. Current Therapy Surveillance Stage Favorable intermediate risk prostate cancer T1c [place] 3+4=7 (single core) PSA 7.83 Social History: Non-smoker Non-drinker Allergies / Meds Allergies: Coded Allergies: propoxyphene (Verified Adverse Reaction, Mild, weird dreams, 10/28/20) Home Meds Reported Medications Omeprazole (Omeprazole) 40 Mg Capsule. 07/22/20 Tamsulosin Hcl (Tamsulosin HCl) 0.4 Mg Capsule, 0.4 MG PO BID 07/22/20 Tramadol HCl/Acetaminophen (Tramadol-Acetaminophn 37.5-325) 1 Each Tablet, 1 TAB PO BID 07/22/20 Cetirizine HCl (Cetirizine HCl) 10 Mg Tablet, 10 MG PO QHS, TAB 08/07/19 Gabapentin (Gabapentin) 300 Mg Capsule, 300 MG PO DAILY for 30 Days, #30 CAP 08/07/19 Telmisartan (Telmisartan) 20 Mg Tablet, 20 MG PO DAILY for 30 Days, #30 TAB 08/07/19 Glycerin/Propylene Glycol (Eq Artificial Tears Drops) 15 Ml Drops, 1 JOSE OU CHETNA LY, CONTAINER 08/07/19 Atorvastatin Calcium (Atorvastatin Calcium) 10 Mg Tablet, 10 MG PO DAILY, TAB 08/07/19 Calcitriol (Calcitriol) 0.25 Mcg Capsule, 0.25 MCG PO 3XW for 30 Days, CAP 08/07/19 Metoprolol Succinate (Metoprolol Succinate) 50 Mg Tab.er.24h, 50 MG PO DAILY, TAB 08/07/19 Multivit-Mins/Iron/Folic/Lycop (Centrum Men's Tablet) 1 Each Tablet, 1 TAB PO DAILY for 30 Days, #30 TAB 08/07/19 Amlodipine Besylate (Amlodipine Besylate) 5 Mg Tablet, 5 MG PO DAILY, TAB 08/07/19 Review of Systems Review of Systems Constitutional: Reports: Fatigue Gastrointestinal: Denies: Diarrhea, Melena, Hematochezia Genitourinary: Reports: Dysuria; Denies: Frequency, Incontinence, Retention Musculoskeletal: Denies: Back pain Neurological: Denies: Weakness, Numbness Psych: Denies: Mood Normal Physical Examination Vital Signs Ht 67" Wt 197 lbs BMI 30.8 T 96.8 P 60 RR 18 BP 134/74 O2 98% Pain 0 Fatigue 0 General Exam: Alert, Cooperative, No Acute Distress Eye Exam: PERRLA, EOMI Chest Exam: Clear to auscultation Heart Exam: Rate Normal Abdomen Exam: Soft Extremity Exam: Negative: Edema Skin Exam: Nl turgor and temperature Neuro Exam: Normal Gait, Normal Speech, Cranial Nerves 3-12 NL Psych Exam: Mental status NL Diagnostic and Laboratory Diagnostic Review Radiologic images, relevant labs and pathology reports were personally reviewed and discussed with Mr. Escamilla. Assessment and Plan Impression Assessment Mr. 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 He completed EBRT 70 Gy in 28 fractions on 10/29/19. He developed radiation proctitis over the winter of 2020 and underwent APC with Dr. Ritchie on 11/03/20 which resulted in resolution of his bleeding. Valdemar is doing well overall, his PSA is in good response, his RT proctitis has abated s/p APC. He is overall satisfied with his urination at this time. Given this I will see him in 1 year with a PSA check, as he continues to follow at [facility] urology annually as well. Performance Status ECOG 0 Plan Follow up in 1 year with PSA Mr. Escamilla was encouraged to call with questions or concerns in the interim period. Billing Statement Total time of [22] minutes was spent preparing for the visit [1], obtaining HPI [4], examining the patient [2], reviewing diagnostic tests [1], discussing management options [5], coordinating care [2], and writing this note [7]. STEVO CHACON MD Feb 04, 2021 12:25
== END ==
LOC: M ONCR 10:13
PROVIDERS: ATTEND General Practice
DX: C61 Malignant neoplasm of prostate (principal); Z92.3 Personal history of irradiation; Z88.1 Allergy status to other antibiotic agents; Z79.899 Other long term (current) drug therapy

== ENCOUNTER → 2021-05-26 | Outpatient (CLI) | payer MEDICARE, BC ==
[~2021-05-26] MED LIST changes: -OMEP-221; +OMEP40CA5
[2021-05-26 09:55] LABS: BASO % 0.5 % (0.0-1.0); EOS # 0.1 10^3/uL (0.0-0.5); EOS % 2.2 % (0.0-3.0); HEMATOCRIT 45.8 % (42.0-52.0); HEMOGLOBIN 15.6 g/dl (13.5-17.5); LYMPH # 1.2 10^3/uL (1.5-5.0); LYMPH % 31.7 % (24.0-44.0); MEAN CORPUSCULAR HEMOGLOBIN 30.7 pg (27.0-33.0); MEAN CORPUSCULAR HGB CONC 34.1 g/dl (32.0-36.5); MEAN CORPUSCULAR VOLUME 90.2 fl (80.0-96.0); MONO # 0.4 10^3/uL (0.0-0.8); MONO % 10.8 % (2.0-8.0); NEUTROPHILS % 54.5 % (36.0-66.0); PLATELET COUNT, AUTOMATED 164 10^3/uL (150-450); RED BLOOD COUNT 5.08 10^6/uL (4.30-6.10); WHITE BLOOD COUNT 3.7 10^3/uL (4.0-10.0)
[2021-05-26 10:23] LABS: ALBUMIN 3.7 GM/DL (3.2-5.2); ALT/SGPT 39 U/L (12-78); BLOOD UREA NITROGEN 17 MG/DL (7-18); CALCIUM LEVEL 9.3 MG/DL (8.8-10.2); CARBON DIOXIDE LEVEL 30 MEQ/L (21-32); CHLORIDE LEVEL 109 MEQ/L (98-107); CHOLESTEROL LEVEL 152 MG/DL (<200); CREATININE FOR GFR 1.22 MG/DL (0.70-1.30); GLOMERULAR FILTRATION RATE > 60.0 (>42); GLUCOSE, FASTING 93 MG/DL (70-100); HDL CHOLESTEROL 32 MG/DL (>40); LDL CHOLESTEROL 98 MG/DL (<100); NON-HDL-C 120 MG/DL; SODIUM LEVEL 145 MEQ/L (136-145); TOTAL PROTEIN 6.7 GM/DL (6.4-8.2); TRIGLYCERIDES LEVEL 110 MG/DL (<150)
[2021-05-26 10:29] LABS: TOTAL 25(OH) VITAMIN D 44.7 NG/ML (30.0-100.0)
== END ==
LOC: M WUC 08:29
PROVIDERS: ATTEND Nurse Practitioner Family
DX: E78.5 Hyperlipidemia, unspecified (principal); I10 Essential (primary) hypertension; D69.6 Thrombocytopenia, unspecified; M47.816 Spondylosis without myelopathy or radiculopathy, lumbar region; E55.9 Vitamin D deficiency, unspecified; Z79.899 Other long term (current) drug therapy

== ENCOUNTER → 2021-06-03 | Outpatient (CLI) | payer MEDICARE, BC | LOC: M WUC 10:29 | PROVIDERS: ATTEND Nurse Practitioner Family | DX: M25.552 Pain in left hip (principal) ==

== ENCOUNTER → 2021-10-19 | Outpatient (CLI) | payer MEDICARE, BC | LOC: M WUC 09:25 | PROVIDERS: ATTEND Urology | DX: C61 Malignant neoplasm of prostate (principal) ==

== ENCOUNTER → 2021-11-14 | Outpatient (CLI) | payer MEDICARE, BC | LOC: M RAD 12:31 | PROVIDERS: ATTEND Nurse Practitioner Family | DX: M47.27 Other spondylosis with radiculopathy, lumbosacral region (principal) ==

== ENCOUNTER → 2021-11-23 | Outpatient (CLI) | payer MEDICARE, BC ==
[2021-11-23 10:12] LABS: BASO % 0.5 % (0.0-1.0); EOS # 0.1 10^3/uL (0.0-0.5); EOS % 1.7 % (0.0-3.0); HEMATOCRIT 44.6 % (42.0-52.0); HEMOGLOBIN 15.4 g/dl (13.5-17.5); LYMPH # 1.2 10^3/uL (1.5-5.0); LYMPH % 27.8 % (24.0-44.0); MEAN CORPUSCULAR HGB CONC 34.5 g/dl (32.0-36.5); MEAN CORPUSCULAR VOLUME 92.5 fl (80.0-96.0); MONO # 0.4 10^3/uL (0.0-0.8); MONO % 9.6 % (2.0-8.0); NEUTROPHILS # 2.5 10^3/uL (1.5-8.5); NEUTROPHILS % 60.2 % (36.0-66.0); PLATELET COUNT, AUTOMATED 145 10^3/uL (150-450); RED BLOOD COUNT 4.82 10^6/uL (4.30-6.10); WHITE BLOOD COUNT 4.2 10^3/uL (4.0-10.0)
[2021-11-23 10:55] LABS: BILIRUBIN,TOTAL 1.4 MG/DL (0.2-1.0); CALCIUM LEVEL 8.5 MG/DL (8.8-10.2); CHOLESTEROL RISK RATIO 4.085 (<5); CREATININE FOR GFR 1.38 MG/DL (0.70-1.30); GLOMERULAR FILTRATION RATE 53.1 (>42); POTASSIUM SERUM 3.9 MEQ/L (3.5-5.1); TOTAL PROTEIN 6.5 GM/DL (6.4-8.2)
[2021-11-23 10:56] LABS: ALBUMIN 3.8 GM/DL (3.2-5.2)
[2021-11-23 11:22] LABS: TOTAL 25(OH) VITAMIN D 52.8 NG/ML (30.0-100.0)
== END ==
LOC: M PLALAB 08:44
PROVIDERS: ATTEND Nurse Practitioner Family
DX: E78.5 Hyperlipidemia, unspecified (principal); I10 Essential (primary) hypertension; E55.9 Vitamin D deficiency, unspecified; D69.6 Thrombocytopenia, unspecified; M47.816 Spondylosis without myelopathy or radiculopathy, lumbar region; Z79.899 Other long term (current) drug therapy

== ENCOUNTER → 2022-02-05 | Outpatient (CLI) | payer MEDICARE, BC | LOC: M PLALAB 10:42 | PROVIDERS: ATTEND General Practice | DX: C61 Malignant neoplasm of prostate (principal) ==

== ENCOUNTER → 2022-02-10 | Outpatient (CLI) | payer MEDICARE, BC | LOC: M ONCR 14:17 | PROVIDERS: ATTEND General Practice | DX: C61 Malignant neoplasm of prostate (principal); Z79.891 Long term (current) use of opiate analgesic; Z79.899 Other long term (current) drug therapy; Z88.5 Allergy status to narcotic agent; Z92.3 Personal history of irradiation ==

== ENCOUNTER → 2022-04-16 | Outpatient (CLI) | payer MEDICARE, BC | LOC: M WUC 11:22 | PROVIDERS: ATTEND Physician Assistant Medical | DX: C61 Malignant neoplasm of prostate (principal) ==

== ENCOUNTER → 2022-08-04 | Outpatient (CLI) | payer MEDICARE, BC ==
[2022-08-04 10:26] LABS: BASO % 0.7 % (0.0-1.0); EOS # 0.1 10^3/uL (0.0-0.5); EOS % 3.2 % (0.0-3.0); HEMATOCRIT 44.4 % (42.0-52.0); HEMOGLOBIN 15.4 g/dl (13.5-17.5); LYMPH # 1.2 10^3/uL (1.5-5.0); LYMPH % 29.9 % (24.0-44.0); MEAN CORPUSCULAR HEMOGLOBIN 31.8 pg (27.0-33.0); MEAN CORPUSCULAR HGB CONC 34.7 g/dl (32.0-36.5); MEAN CORPUSCULAR VOLUME 91.7 fl (80.0-96.0); MONO # 0.4 10^3/uL (0.0-0.8); MONO % 9.7 % (2.0-8.0); NEUTROPHILS # 2.2 10^3/uL (1.5-8.5); PLATELET COUNT, AUTOMATED 128 10^3/uL (150-450); RED BLOOD COUNT 4.84 10^6/uL (4.30-6.10)
[2022-08-04 11:44] LABS: TOTAL 25(OH) VITAMIN D 48.7 NG/ML (20.0-100.0)
[2022-08-04 11:47] LABS: ALBUMIN 3.9 G/DL (3.2-5.2); BILIRUBIN,TOTAL 1.5 MG/DL (0.3-1.2); CALCIUM LEVEL 8.5 MG/DL (8.3-10.6); CHOLESTEROL RISK RATIO 4.46 (<5); CREATININE FOR GFR 1.31 MG/DL (0.70-1.30); GLOMERULAR FILTRATION RATE 56.2 (>42); HDL CHOLESTEROL 32.5 MG/DL (>40); LDL CHOLESTEROL 84.1 MG/DL (<100); NON-HDL-C 112.5 MG/DL; POTASSIUM SERUM 4.1 MMOL/L (3.5-5.1); TOTAL PROTEIN 6.2 G/DL (5.7-8.2)
== END ==
LOC: M PLALAB 08:45
PROVIDERS: ATTEND Nurse Practitioner Family
DX: E78.5 Hyperlipidemia, unspecified (principal); I10 Essential (primary) hypertension; E55.9 Vitamin D deficiency, unspecified

== ENCOUNTER → 2022-10-21 | Outpatient (CLI) | payer MEDICARE, BC | LOC: M WUC 13:07 | PROVIDERS: ATTEND Physician Assistant Medical | DX: Z85.46 Personal history of malignant neoplasm of prostate (principal) ==

== ENCOUNTER → 2023-04-15 | Outpatient (REF) | payer MEDICARE, BC | LOC: M LABWUC 11:22 | PROVIDERS: ATTEND Physician Assistant Medical | DX: Z85.46 Personal history of malignant neoplasm of prostate (principal) ==

== ENCOUNTER → 2023-04-26 | Outpatient (CLI) | payer MEDICARE, BC ==
[2023-04-26 14:55] LABS: CREATININE FOR GFR 1.32 MG/DL (0.70-1.30); GLOMERULAR FILTRATION RATE 55.6 (>35)
== END ==
LOC: M PLALAB 11:23
PROVIDERS: ATTEND Orthopaedic Surgery Hand Surgery
DX: M65.342 Trigger finger, left ring finger (principal)

== ENCOUNTER 2023-05-21 22:25 | Emergency (ER) | payer MEDICARE, BC ==
[~2023-05-21] VITALS: Ht 172.7 cm; Wt 84.1 kg
[2023-05-21 23:11] LABS: BASO % 0.3 % (0.0-1.0); EOS % 0.1 % (0.0-3.0); HEMATOCRIT 44.7 % (42.0-52.0); HEMOGLOBIN 16.1 g/dl (13.5-17.5); LYMPH % 12.7 % (24.0-44.0); MEAN CORPUSCULAR HEMOGLOBIN 31.8 pg (27.0-33.0); MEAN CORPUSCULAR VOLUME 88.3 fl (80.0-96.0); MONO # 0.6 10^3/uL (0.0-0.8); NEUTROPHILS # 6.3 10^3/uL (1.5-8.5); NEUTROPHILS % 79.5 % (36.0-66.0); PLATELET COUNT, AUTOMATED 157 10^3/uL (150-450); RED BLOOD COUNT 5.06 10^6/uL (4.30-6.10)
[2023-05-21] MEDS: ONDANSETRON 4MG 2ML VIAL IV ONE (23:13)
[2023-05-21] MEDS: MORPHINE 4 MG/ML 1ML VIAL IV PRN (23:15)
[2023-05-21] MEDS ORDERED: ISOVUE-370 76% 100ML VIAL As Ordered ONE (23:26)
[2023-05-21 23:40] LABS: ALBUMIN 3.8 G/DL (3.2-5.2); BILIRUBIN,DIRECT 0.5 MG/DL (<0.4); BILIRUBIN,TOTAL 1.6 MG/DL (0.3-1.2); CK-MB VALUE MASS 1.6 NG/ML (<3.6); TOTAL PROTEIN 6.8 G/DL (5.7-8.2)
[2023-05-21] MEDS: NS 500 ML IV ONE (23:40)
[2023-05-22 02:44] LABS: CK-MB VALUE MASS < 1.0 NG/ML (<3.6)
[2023-05-22 02:48] LABS: CPK CREATINE PHOSPHOKINASE 152 U/L (46-171); MB/CK RELATIVE INDEX 0.65 (< OR =4)
[2023-05-22 03:30] VITALS: TEMP 101; O2SAT 96
[2023-05-22 03:45] VITALS: BP 123/58
== END 2023-05-22 04:12 | disposition home or self-care (01) ==
LOC: M ED 22:25
DX: K80.50 Calculus of bile duct without cholangitis or cholecystitis without obstruction (principal); I44.7 Left bundle-branch block, unspecified; K21.9 Gastro-esophageal reflux disease without esophagitis; I10 Essential (primary) hypertension; E78.5 Hyperlipidemia, unspecified; Z88.8 Allergy status to other drugs, medicaments and biological substances; Z79.899 Other long term (current) drug therapy; Z79.810 Long term (current) use of selective estrogen receptor modulators (SERMs)
CPT/HCPCS: 71275; 74174; 76705; 80047; 80076; 82550; 82553; 83605; 83690; 84484; 85025; 86850; 86900; 86901; 87040; 93005; 93041; 96361; 96374; 96375; 99285; J2405; Q9967

== ENCOUNTER → 2023-05-27 | Outpatient (CLI) | payer MEDICARE, BC | LOC: M SOG 13:25 | PROVIDERS: ATTEND Physician Assistant | DX: M79.645 Pain in left finger(s) (principal); M79.671 Pain in right foot ==

== ENCOUNTER → 2023-07-28 | Outpatient (CLI) | payer MEDICARE, BC ==
[2023-07-28 12:16] LABS: BASO % 0.7 % (0.0-1.0); EOS # 0.2 10^3/uL (0.0-0.5); EOS % 4.3 % (0.0-3.0); HEMATOCRIT 44.8 % (42.0-52.0); HEMOGLOBIN 15.2 g/dl (13.5-17.5); LYMPH # 1.5 10^3/uL (1.5-5.0); MEAN CORPUSCULAR HEMOGLOBIN 31.8 pg (27.0-33.0); MEAN CORPUSCULAR HGB CONC 33.9 g/dl (32.0-36.5); MEAN CORPUSCULAR VOLUME 93.7 fl (80.0-96.0); MONO # 0.4 10^3/uL (0.0-0.8); MONO % 8.7 % (2.0-8.0); NEUTROPHILS % 49.1 % (36.0-66.0); PLATELET COUNT, AUTOMATED 142 10^3/uL (150-450); RED BLOOD COUNT 4.78 10^6/uL (4.30-6.10); WHITE BLOOD COUNT 4.1 10^3/uL (4.0-10.0)
[2023-07-28 12:43] LABS: ALBUMIN 3.8 G/DL (3.2-5.2); BILIRUBIN,TOTAL 1.8 MG/DL (0.3-1.2); CALCIUM LEVEL 8.9 MG/DL (8.3-10.6); CHOLESTEROL RISK RATIO 4.86 (<5); CREATININE FOR GFR 1.39 MG/DL (0.70-1.30); GLOMERULAR FILTRATION RATE 52.3 (>35); HDL CHOLESTEROL 30.4 MG/DL (>40); LDL CHOLESTEROL 87.8 MG/DL (<100); NON-HDL-C 117.6 MG/DL; POTASSIUM SERUM 4.2 MMOL/L (3.5-5.1); TOTAL PROTEIN 6.3 G/DL (5.7-8.2)
[2023-07-28 12:46] LABS: TOTAL 25(OH) VITAMIN D 52.4 NG/ML (20.0-100.0)
== END ==
LOC: M WUC 08:43
PROVIDERS: ATTEND Nurse Practitioner Family
DX: E78.5 Hyperlipidemia, unspecified (principal); I10 Essential (primary) hypertension; E55.9 Vitamin D deficiency, unspecified

== ENCOUNTER → 2023-10-06 | Outpatient (CLI) | payer MEDICARE, BC ==
[~2023-10-06] MED LIST changes: +TRAM1TAB42 PO; -TRAM37.53 PO
== END ==
LOC: M RAD 09:56
PROVIDERS: ATTEND Nurse Practitioner Family
DX: R79.89 Other specified abnormal findings of blood chemistry (principal)

== ENCOUNTER → 2023-10-24 | Outpatient (CLI) | payer MEDICARE, BC | LOC: M WUC 08:32 | PROVIDERS: ATTEND Physician Assistant Medical | DX: Z85.46 Personal history of malignant neoplasm of prostate (principal) ==

== ENCOUNTER 2023-12-24 01:16 | Emergency (ER) | payer MEDICARE, BC ==
[~2023-12-24] VITALS: Ht 170.2 cm; Wt 81.4 kg
[~2023-12-24 01:16] MED LIST changes: +GABA-1172 PO; -GABA-282 PO
[2023-12-24 01:18] VITALS: TEMP 98.5
[2023-12-24] MEDS: ONDANSETRON 4MG 2ML VIAL IV ONE (01:57)
[2023-12-24] MEDS: MORPHINE 4 MG/ML 1ML VIAL IV ONE (01:57)
[2023-12-24 02:00] LABS: BASO % 0.3 % (0.0-1.0); EOS % 0.3 % (0.0-3.0); HEMATOCRIT 46.6 % (42.0-52.0); HEMOGLOBIN 16.3 g/dl (13.5-17.5); LYMPH # 1.3 10^3/uL (1.5-5.0); LYMPH % 17.2 % (24.0-44.0); MEAN CORPUSCULAR HEMOGLOBIN 32.8 pg (27.0-33.0); MEAN CORPUSCULAR VOLUME 93.8 fl (80.0-96.0); MONO # 0.5 10^3/uL (0.0-0.8); MONO % 6.9 % (2.0-8.0); NEUTROPHILS # 5.8 10^3/uL (1.5-8.5); PLATELET COUNT, AUTOMATED 125 10^3/uL (150-450); RED BLOOD COUNT 4.97 10^6/uL (4.30-6.10); WHITE BLOOD COUNT 7.7 10^3/uL (4.0-10.0)
[2023-12-24 02:32] LABS: ALBUMIN 4.1 G/DL (3.2-5.2); BILIRUBIN,DIRECT 0.7 MG/DL (<0.4); BILIRUBIN,TOTAL 2.1 MG/DL (0.3-1.2); CALCIUM LEVEL 9.6 MG/DL (8.3-10.6); CREATININE FOR GFR 1.34 MG/DL (0.70-1.30); GLOMERULAR FILTRATION RATE 54.6 (>35); POTASSIUM SERUM 4.2 MMOL/L (3.5-5.1); TOTAL PROTEIN 7.6 G/DL (5.7-8.2)
[2023-12-24] MEDS ORDERED: REGL10TA6 PO (04:55)
[2023-12-24] MEDS ORDERED: LEVS0.124 SL (04:55)
[2023-12-24 05:00] VITALS: BP 125/59; O2SAT 97
== END 2023-12-24 05:05 | disposition home or self-care (01) ==
LOC: M ED 01:16
DX: K80.50 Calculus of bile duct without cholangitis or cholecystitis without obstruction (principal); I10 Essential (primary) hypertension; K21.9 Gastro-esophageal reflux disease without esophagitis; Z88.8 Allergy status to other drugs, medicaments and biological substances; Z79.810 Long term (current) use of selective estrogen receptor modulators (SERMs); Z79.899 Other long term (current) drug therapy
CPT/HCPCS: 76705; 80047; 80048; 80076; 83690; 85025; 96374; 99284; J2405

== ENCOUNTER → 2024-01-18 | Outpatient (CLI) | payer MEDICARE, BC ==
[~2024-01-18] MED LIST changes: +LEVS0.124 SL; +REGL10TA6 PO
[2024-01-18 10:02] LABS: BASO % 0.5 % (0.0-1.0); EOS # 0.2 10^3/uL (0.0-0.5); EOS % 4.2 % (0.0-3.0); HEMATOCRIT 44.4 % (42.0-52.0); HEMOGLOBIN 15.3 g/dl (13.5-17.5); LYMPH # 1.4 10^3/uL (1.5-5.0); LYMPH % 31.4 % (24.0-44.0); MEAN CORPUSCULAR HEMOGLOBIN 32.1 pg (27.0-33.0); MEAN CORPUSCULAR HGB CONC 34.5 g/dl (32.0-36.5); MEAN CORPUSCULAR VOLUME 93.3 fl (80.0-96.0); MONO # 0.4 10^3/uL (0.0-0.8); MONO % 10.2 % (2.0-8.0); NEUTROPHILS # 2.3 10^3/uL (1.5-8.5); NEUTROPHILS % 53.5 % (36.0-66.0); PLATELET COUNT, AUTOMATED 144 10^3/uL (150-450); RED BLOOD COUNT 4.76 10^6/uL (4.30-6.10); WHITE BLOOD COUNT 4.3 10^3/uL (4.0-10.0)
[2024-01-18 10:32] LABS: ALBUMIN 3.6 G/DL (3.2-5.2); BILIRUBIN,TOTAL 1.3 MG/DL (0.3-1.2); CALCIUM LEVEL 9.5 MG/DL (8.3-10.6); CHOLESTEROL RISK RATIO 5.09 (<5); CREATININE FOR GFR 1.33 MG/DL (0.70-1.30); GLOMERULAR FILTRATION RATE 55.1 (>35); HDL CHOLESTEROL 31.2 MG/DL (>40); NON-HDL-C 127.8 MG/DL; POTASSIUM SERUM 4.1 MMOL/L (3.5-5.1); TOTAL PROTEIN 6.8 G/DL (5.7-8.2)
== END ==
LOC: M WUC 08:07
PROVIDERS: ATTEND Nurse Practitioner Family
DX: E78.5 Hyperlipidemia, unspecified (principal); I10 Essential (primary) hypertension

== ENCOUNTER → 2024-02-07 | Outpatient (CLI) | payer MEDICARE, BC ==
[~2024-02-07] MED LIST changes: +GASTROGRAFIN SOLUTION 30ML As Ordered ONE; +ISOVUE-370 76% 100ML VIAL As Ordered ONE
== END ==
LOC: M RAD 08:14
PROVIDERS: ATTEND Nurse Practitioner Family
DX: R10.9 Unspecified abdominal pain (principal); K57.30 Diverticulosis of large intestine without perforation or abscess without bleeding
CPT/HCPCS: 74177; Q9963; Q9967

== ENCOUNTER → 2024-02-16 | Outpatient (CLI) | payer MEDICARE, OTHER ==
[~2024-02-16] MED LIST changes: -GASTROGRAFIN SOLUTION 30ML As Ordered ONE; -ISOVUE-370 76% 100ML VIAL As Ordered ONE
== END ==
LOC: M PLAIMG 14:06
PROVIDERS: ATTEND Physician Assistant Medical
DX: M25.562 Pain in left knee (principal)

== ENCOUNTER → 2024-02-16 | Outpatient (REF) | payer MEDICARE, OTHER | LOC: M SFHCPLAZ 15:33 | PROVIDERS: ATTEND Physician Assistant Medical | DX: M47.816 Spondylosis without myelopathy or radiculopathy, lumbar region (principal) ==

== ENCOUNTER → 2024-02-21 | Outpatient (CLI) | payer MEDICARE, OTHER | LOC: M RAD 06:37 | PROVIDERS: ATTEND Surgery | DX: R10.9 Unspecified abdominal pain (principal) | CPT/HCPCS: 78227; A9537 ==

== ENCOUNTER → 2024-03-30 | Outpatient (CLI) | payer MEDICARE, OTHER ==
[2024-03-30 17:11] LABS: BILIRUBIN,TOTAL 1.2 MG/DL (0.3-1.2); CALCIUM LEVEL 8.8 MG/DL (8.3-10.6); CREATININE FOR GFR 1.43 MG/DL (0.70-1.30); GLOMERULAR FILTRATION RATE 50.5 (>35); POTASSIUM SERUM 4.1 MMOL/L (3.5-5.1); TOTAL PROTEIN 6.7 G/DL (5.7-8.2)
[2024-04-03 15:12] LABS: LYME TOTAL ANTIBODY CIA <= 0.90 Index (<=0.90)
== END ==
LOC: M PLALAB 13:30
PROVIDERS: ATTEND Nurse Practitioner Family
DX: R61 Generalized hyperhidrosis (principal)

== ENCOUNTER → 2024-06-05 | Outpatient (CLI) | payer OTHER | LOC: M WUC 12:34 | PROVIDERS: ATTEND Nurse Practitioner Family | DX: M89.9 Disorder of bone, unspecified (principal) ==

== ENCOUNTER → 2024-11-05 | Outpatient (CLI) | payer MEDICARE, OTHER | LOC: M WUC 08:19 | PROVIDERS: ATTEND Urology | DX: C61 Malignant neoplasm of prostate (principal); R35.1 Nocturia ==

== ENCOUNTER → 2025-01-16 | Outpatient (CLI) | payer MEDICARE, OTHER ==
[2025-01-16 10:59] LABS: BASO # 0.0 10^3/uL (0.0-0.2); BASO % 0.4 % (0.0-1.0); EOS # 0.1 10^3/uL (0.0-0.5); EOS % 2.0 % (0.0-3.0); LYMPH # 1.3 10^3/uL (1.5-5.0); LYMPH % 28.6 % (24.0-44.0); MONO # 0.5 10^3/uL (0.0-0.8); MONO % 10.3 % (2.0-8.0); NEUTROPHILS # 2.6 10^3/uL (1.5-8.5); NEUTROPHILS % 58.3 % (36.0-66.0); PLATELET COUNT, AUTOMATED 150 10^3/uL (150-450)
[2025-01-16 11:33] LABS: ALT/SGPT 34.0 U/L (7.0-40); AST/SGOT 41.0 U/L (<34); CALCIUM LEVEL 9.0 MG/DL (8.3-10.6); CARBON DIOXIDE LEVEL 30.0 MMOL/L (20-31); CHLORIDE LEVEL 105.0 MMOL/L (98-107); CHOLESTEROL LEVEL 160.0 MG/DL (<200); CHOLESTEROL RISK RATIO 4.66 (<5); CREATININE FOR GFR 1.38 MG/DL (0.70-1.30); GLOMERULAR FILTRATION RATE 51.4 (>35); LDL CHOLESTEROL 100.1 MG/DL (<100); MAGNESIUM LEVEL 2.0 MG/DL (1.8-2.4); NON-HDL-C 125.7 MG/DL; POTASSIUM SERUM 4.6 MMOL/L (3.5-5.1); PTH INTACT 70.7 PG/ML (18.5-88.0); SODIUM LEVEL 144.0 MMOL/L (136-145); TRIGLYCERIDES LEVEL 128.0 MG/DL (<150)
[2025-01-16 11:34] LABS: FREE T4 1.16 NG/DL (0.89-1.76)
== END ==
LOC: M PLALAB 08:16
PROVIDERS: ATTEND Nurse Practitioner Family
DX: E78.5 Hyperlipidemia, unspecified (principal); E55.9 Vitamin D deficiency, unspecified; I10 Essential (primary) hypertension; N25.81 Secondary hyperparathyroidism of renal origin